=== PATIENT | female | born 1945 | race Caucasian/White ===

== ENCOUNTER 2023-01-05 07:56 | Outpatient (CLI) | payer MEDICARE, SELFPAY ==
[2023-01-05 08:07] VITALS: BP 133/76; PULSE 78; RESP 20; TEMP 36.7; O2SAT 97
--- NOTE | 2023-01-05 09:11 | PDOC.PAIN_ITS ---
Date of service: 01/05/23 Time of Service: 09:23 Pain Managment Procedure Note Procedure Note Procedure Note: Left sided OCCIPITAL NERVE BLOCK PROCEDURE NOTE The patient complains of left occipital head pain. Pre-operative diagnosis: Left Occipital Neuralgia Post-operative diagnosis: Same Pre-procedure pain: VAS= 7/10 Comments: This is the first time that she has had this procedure and I evaluated her earlier today in our clinic. TOI JURADO was greeted by the nurse who verified patients name and . Ms. Jurado was interviewed and the medical record reviewed. There were no medical, pharmacologic, radiographic, or other structural contraindications to attempting left greater and lesser occipital nerve blocks. Risks and potential side effects were discussed. The potential benefits of the procedure were reviewed with Ms. Jurado and her voiced concerns were addressed. After obtaining informed consent, the patient consent form was signed. Standard time- out procedure was performed. TOI was placed in the prone position on the examination table. The occipital protuberance was palpated. The skin just to the left side of the occipital protuberance and out 2 inches lateral to the protuberance was thoroughly prepared with an alcohol preparation. Next, I entered the skin to each side of the protuberance with a 1.5 25G spinal needle. Aspiration revealed no blood or other fluid. Next, I injected 1 ml of preservative-free 1% Lidocaine followed by 2 cc of 0.25% Bupivacaine and removed the needle. I then placed the needle 2 inches lateral on the left side to the occipital protuberance and entered the skin and advanced the needle to the skull. Next, I injected 1 ml of preservative-free 1% Lidocaine and 2 cc of 0.25% Bupivacaine and removed the needle. Follow up plans and appointments were discussed with TOI . Post procedure instruction was given as documented in nursing documentation and having met discharge criteria,TOI was [facility] from the [facility]. COMMENTS: No apparent complications. Post-procedure pain: VAS= 1/10 F/U with our office by phone. I personally performed this entire procedure. Abdullahi Valdez DO, MPH ABPMR-subspecialty board certification in Pain Medicine [facility]
[2023-01-05 09:13] VITALS: PULSE 78; O2SAT 97
[2023-01-05] MEDS: Lidocaine 2% Pres-Free 5 ML VIAL IJ (09:16)
[2023-01-05] MEDS: Bupivacaine 0.25% Pres-Free 30 ML VIAL IJ (09:16)
== END 2023-01-05 07:57 | disposition home or self-care (01) ==
LOC: PC 07:56
PROVIDERS: PCP Family Medicine; Visit Provider Preventive Medicine Occupational Medicine
DX: M54.81 Occipital neuralgia (principal); R51.9 Headache, unspecified
CPT/HCPCS: 64405; 64450

== ENCOUNTER 2023-01-09 01:24 | Outpatient (CLI) | payer MEDICARE, SELFPAY ==
--- NOTE | 2023-01-09 07:30 | DI.US_ITS ---
Exam(s) US THYROID EXAM: US THYROID CLINICAL HISTORY: assess for change,lt thyroid nodule,e04.1. TECHNIQUE: Ultrasound thyroid performed using standard protocol. COMPARISON: No exams were available for comparison FINDINGS: ISTHMUS: 2 mm RIGHT LOBE: Size: 4.8 x 1.7 x 1.8 cm Echogenicity: Normal. Vascularity: Normal. Nodules: None. LEFT LOBE: Size: 3.9 x 1.6 x 2.3 cm Echogenicity: Normal. Vascularity: Normal. Nodules: There is a solid hypoechoic 2.3 x 1.2 x 1.5 cm nodule in the left lobe. There is a macrocal cification present. The margins are well-defined. The findings are consistent with a TI rads level 4 nodule. Due to its size, FNA is recommended. OTHER FINDINGS: None. IMPRESSION: Single TI rads level 4 nodule in the left lobe of the thyroid gland. Due to its size, FNA is recomme nded. DATA REPOSITORY:
== END 2023-01-09 01:44 ==
LOC: DI 01:25
PROVIDERS: PCP Family Medicine; Visit Provider Otolaryngology
DX: E04.1 Nontoxic single thyroid nodule (principal)
CPT/HCPCS: 76536

== ENCOUNTER → 2023-12-05 08:53 | Outpatient (BNVA) | payer MEDICARE, SELFPAY | PROVIDERS: PCP Physician Assistant; Referring Provider Physician Assistant | DX: M17.11 Unilateral primary osteoarthritis, right knee (principal); W01.0XXA Fall on same level from slipping, tripping and stumbling without subsequent striking against object, initial encounter | CPT/HCPCS: 99203 ==

== ENCOUNTER → 2024-01-11 03:54 | Outpatient (CLI) | payer MEDICARE, SELFPAY ==
--- NOTE | 2024-01-11 07:45 | DI.US_ITS ---
Exam(s) US THYROID EXAM: US THYROID CLINICAL HISTORY: assess for change, LT THYROID NODULE, E04.1 NONTOXIC SINGLE NODULE. TECHNIQUE: Ultrasound thyroid performed using standard protocol. COMPARISON: US US THYROID from 01/09/2023 FINDINGS: There is again noted a solitary nodule which is in the left lobe and measures 2.2 x 1.2 x 1.6 cm., Si milar to the prior ultrasound exam. LEFT THYROID LOBE: Measures 1.9 cm AP x 2.3 cm wide x 4.3 cm craniocaudal Size: Measures 2.2 x 1.2 x 1.6 cm Composition: Solid-2 points Echogenicity: Mildly hypoechoic compared to surrounding tissue-2 points Shape: Wider than taller-0 points Margin: Smooth- 0 points Echogenic Foci: Contains punctate echogenic foci-3 points Total Points for this nodule: 7 ACR Ti-Rads Category: TR5 This TR 5 level nodule requires ultrasound-guided FNA as it measures greater than 1 cm. I note that color flow imaging reveals peripheral hyperemia around the circumference of this nodule corresponding to hypoechoic rim on ultrasound. ISTHMUS: Normal thickness. There are no nodules in the isthmus. RIGHT THYROID LOBE: Measures 2.1 cm AP x 1.6 wide x 4.7 cm craniocaudal There are no significant nodules in the right lobe. LYMPH NODES: There is no significant adenopathy. IMPRESSION: 1. The previously described solitary solid nodule in left lobe exhibits minimal if any significant ch juli compared to prior ultrasound examination of January 2023, 1 year ago. By my calculation it register is as a TR 5 level nodule, thus requiring ultrasound-guided FNA as it m easures greater than 1 cm. 2. The right thyroid lobe and isthmus appear unremarkable. 3. There is no significant lymphadenopathy. DATA REPOSITORY:
== END ==
PROVIDERS: PCP Physician Assistant; Visit Provider Otolaryngology
DX: E04.1 Nontoxic single thyroid nodule (principal)
CPT/HCPCS: 76536

== ENCOUNTER 2024-11-07 15:31 | Outpatient (CLI) | payer MEDICARE, SELFPAY ==
--- NOTE | 2024-11-07 09:30 | DI.RAD_ITS ---
Exam(s) XR KNEE LT 4V AP,LAT,CATHY,PAT EXAM: XR KNEE LT 4V AP,LAT,CATHY,PAT CLINICAL HISTORY: left knee pain. TECHNIQUE: 2D digital imaging was performed of the left knee. Four images were obtained. Merchant, AP, lateral and PA tunnel views were obtained. COMPARISON: No exams were available for comparison FINDINGS: BONES: No acute fracture is present. No bony destructive lesion is seen. JOINTS: There is marked narrowing of the medial femoral tibial joint. There osteophytes seen in the medial femoral tibial and patellofemoral joints. There is a small joint effusion. There are few den sity seen posteriorly on the lateral view which may represent loose bodies. SOFT TISSUE: Normal. IMPRESSION: Moderately severe degenerative changes of the left knee. DATA REPOSITORY: RADIATION DOSE DELIVERED:
== END 2024-11-07 15:32 | disposition home or self-care (01) ==
LOC: DIORS 15:34
PROVIDERS: PCP Family Medicine; Referring Provider Family Medicine; Visit Provider Physician Assistant
DX: M17.11 Unilateral primary osteoarthritis, right knee; M17.12 Unilateral primary osteoarthritis, left knee
CPT/HCPCS: 99213; 73564

== ENCOUNTER 2025-01-01 00:25 | Outpatient (CLI) | payer MEDICARE, SELFPAY ==
--- NOTE | 2025-01-01 07:30 | DI.US_ITS ---
Exam(s) US THYROID EXAM: US THYROID CLINICAL HISTORY: Assess for change,lt thyroid nodule,e04.1. TECHNIQUE: Ultrasound thyroid performed using standard protocol. COMPARISON: US US THYROID from 01/09/2023 MR MR LS SPINE WO CONTRAST from 01/17/2023 FINDINGS: ISTHMUS: 1.3 mm RIGHT LOBE: Size: 5.0 x 1.6 x 1.9 cm Echogenicity: Normal. Vascularity: Normal. Nodules: None. LEFT LOBE: Size: 3.4 x 2.0 x 2.2 cm Echogenicity: Normal. Vascularity: Normal. Nodules: 2.3 x 1.3 x 1.6 millimeter solid isoechoic nodule with a few punctate echogenic foci, small smooth margins wider than tall, 6 points, TR 4. OTHER FINDINGS: None. IMPRESSION: Stable left thyroid nodule. DATA REPOSITORY:
== END 2025-01-01 00:45 ==
LOC: DI 00:25
PROVIDERS: PCP Family Medicine; Visit Provider Otolaryngology
DX: E04.1 Nontoxic single thyroid nodule (principal)
CPT/HCPCS: 76536

== ENCOUNTER → 2025-01-09 10:01 | Outpatient (BNVA) | payer MEDICARE, SELFPAY | PROVIDERS: PCP Family Medicine; Referring Provider Family Medicine; Visit Provider Student in an Organized Health Care Education/Training Program | DX: M17.0 Bilateral primary osteoarthritis of knee (principal) | CPT/HCPCS: 99213 ==

== ENCOUNTER 2025-04-03 13:24 | Outpatient (CLI) | payer MEDICARE, SELFPAY ==
--- NOTE | 2025-04-03 06:00 | DI.RAD_ITS ---
Exam(s) XR PAIN CLINIC FLUORO JOINT IN EXAM: XR PAIN CLINIC FLUORO JOINT IN CLINICAL HISTORY: DX: Left Knee Osteoarthritis TECHNIQUE: 2D and realtime digital imaging was performed. Radiologist not present. CONTRAST MATERIAL: None. COMPARISON: No exams were available for comparison FINDINGS: Fluoroscopy was provided for pain management therapy. Left knee Synvisc injection Please refer to procedure report or details. Radiation Exposure Index: Ka,r=0.34 mGy IMPRESSION: As above. RADIATION DOSE DELIVERED:
[2025-04-03 12:50] VITALS: BP 110/78; PULSE 64; RESP 18; TEMP 36; O2SAT 97
--- NOTE | 2025-04-03 14:07 | PDOC.PAIN ---
Date of service: 04/03/25 Time of Service: 14:07 Pain Managment Procedure Note Procedure Note Procedure Note: PROCEDURE NOTE LEFT INTRA-ARTICULAR KNEE JOINT SYNVISC-ONE INJECTION Date of Service: April 03, 2025 Patient:? Ry Jurado? Provider:? Abdullahi Valdez DO, MPH Ry Jurado has been referred to the [facility] for LEFT intra-articular knee joint Synvisc-One injection. Pre-operative diagnosis: Knee Osteoarthritis ICD-10 M16.9 Post-operative diagnosis: Same Pre-procedure pain: VAS=10/10 COMMENTS: I previously evaluated her in the clinic and she was referred over for this by her orthopedic surgeon. Ry?was interviewed and the medical record was reviewed.? There were no medical, pharmacologic, radiographic or other structural contraindications to attempting fluoroscopically guided LEFT intra-articular knee joint Synvisc-One injection.? Risks and expected side effects as well as potential benefit of the procedure were reviewed with Ry, and the patient's voiced concerns were addressed.? The printed consent form was signed.? Standard time-out procedure was performed. Ry was placed in the supine position on the fluoroscopy table and the pulse oximeter was applied. The skin entry point for approaching superolateral aspect of the LEFT patellafemoral area was identified under the most advantageous fluoroscopic view and marked. Following thorough Chlorhexadine preparation of the skin and draping, 1% lidocaine infiltration of the skin entry point and subcutaneous tissues was accomplished using a 1.5 25G needle. Next, the 1.5 25G needle was advanced to the center of the patella in a lateral to medial approach under fluoroscopic guidance into the LEFT knee joint. Intra-articular placement was confirmed by a clear arthrogram resulting from the injection of 2 ml Omnipaque 240. Next, the entire syringe of Synvisc-One was injected into the knee joint and this was followed by 3 mls of 1% Lidocaine. This was followed with one ml of 1% lidocaine to clear the needle of any steroid. (48 mls of Omnipaque was wasted). There was no unusual discomfort expressed by Ry. The needle was withdrawn without difficulty. Ry was observed and was without hemodynamic, neurologic, or allergic reactions.? Fluoroscopic images were digitally archived. Ry's vital signs were stable throughout the procedure and were as recorded in the docflowsheet by the nursing staff. If given, dosages of intravenous drugs for anxiolysis and analgesia were documented in MAR. Follow up plans and appointments were discussed with Ry.? Post procedure instruction was given as documented in nursing documentation and having met discharge criteria, Ry was [facility] from the [facility]. COMMENTS: No apparent complications. Post-procedure pain: VAS= 0/10. Ry to contact [facility] as needed. If at least 50% improvement in pain and/or function for at least 3 months is achieved, this procedure can be repeated. I personally completed the entire procedure. ABDULLAHI VALDEZ DO, MPH ABPM&R - Subspecialty board certification in Pain Medicine [facility] Coding Conscious Sedation used for procedure: No CPT Codes: Inj,Bursa/Tendon Major (not SI); Ischial Bursa - [id number] ([id number] ~G) Additional Codes: Date of Service (55947) Date of service: 04/03/25 Diagnoses: Left knee osteoarthritis
[2025-04-03 14:13] VITALS: PULSE 65; O2SAT 97
[2025-04-03 14:20] VITALS: PULSE 63; O2SAT 97
[2025-04-03] MEDS: Nerve Block Tray 1 EACH MC (14:28)
[2025-04-03] MEDS: Lidocaine 2% Pres-Free 5 ML VIAL IJ (14:28)
[2025-04-03] MEDS: Omnipaque 240 MG/ML 50 ML BTL IJ (14:29)
[2025-04-03] MEDS: Hylan G-F 20 48 MG/6 ML SYR IU (14:29)
== END 2025-04-03 13:25 | disposition home or self-care (01) ==
LOC: PC 13:24
PROVIDERS: PCP Family Medicine; Visit Provider Preventive Medicine Occupational Medicine
DX: M25.562 Pain in left knee (principal); M17.12 Unilateral primary osteoarthritis, left knee
CPT/HCPCS: 20610; 77002; J7325; Q9967